=== PATIENT | female | born 1985 | race Caucasian/White ===

== ENCOUNTER 2016-09-07 00:47 | Emergency (ER) | payer MEDICAID ==
[2016-09-07 00:57] VITALS: BP 122/82
--- NOTE | 2016-09-07 01:13 | EDM.PDOC ---
ED HPI GENERAL MEDICAL PROBLEM - General Chief Complaint: Drug or Alcohol Abuse Stated Complaint: MEDICAL CLEARANCE Time Seen by Provider: 09/07/16 01:04 Source of Information: Reports: Patient, Police - History of Present Illness INITIAL COMMENTS - FREE TEXT/NARRATIVE: 31-year-old female has been brought here by [employer] police for medical clearance. She is been stopped and I believe charged with DWI. Officer states that they recorder and EtOH level of 0.21. He states their policy demands medical clearance before being brought to [facility] for detox. She was stopped about 2 hours ago. At this time she has no complaints of chest pain, abdominal pain nausea vomiting or difficulty breathing. Reports no injury. She states she is healthy on no current medications and no known medical problems. 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 Below) Other OB/BYN History: - Past Surgical History Female Surgical History: Reports: Section Social & Family History - Family History Family Medical History: Noncontributory - Tobacco Use Smoking Status *Q: Never Smoker Second Hand Smoke Exposure: No - Caffeine Use Caffeine Use: Reports: None - Recreational Drug Use Recreational Drug Use: No ED ROS GENERAL - Review of Systems Review Of Systems: See Below Constitutional: Reports: No Symptoms HEENT: Reports: No Symptoms Respiratory: Denies: Shortness of Breath Cardiovascular: Denies: Chest Pain GI/Abdominal: Denies: Abdominal Pain, Nausea, Vomiting Musculoskeletal: Reports: No Symptoms Skin: Reports: No Symptoms Neurological: Reports: No Symptoms - Physical Exam Exam: See Below General Appearance: Alert, No Apparent Distress Eye Exam: Bilateral Eye: PERRL Throat/Mouth: Normal Inspection, Normal Oropharynx Head Exam: Atraumatic Neck: Supple Respiratory/Chest: No Respiratory Distress, Lungs Clear, Normal Breath Sounds Cardiovascular: Regular Rate, Rhythm Neuro Exam (Abbreviated): Alert, No Motor/Sensory Deficits Skin Exam: Warm, Dry, Normal Color Course - Vital Signs Last Recorded V/S: Last Vital Signs Temp 96.7 F 09/07/16 00:54 Pulse 122 H 09/07/16 00:54 Resp 16 09/07/16 00:54 BP 122/82 09/07/16 00:54 Pulse Ox 100 09/07/16 00:54 Departure - Departure Time of Disposition: 01:12 Disposition: Home, Self-Care 01 Condition: Fair Clinical Impression: Alcohol intoxication Qualifiers: Complication of substance-induced condition: uncomplicated Qualified Code(s): F10.920 - Alcohol use, unspecified with intoxication, uncomplicated - Discharge Information Instructions: Alcohol Intoxication, [id number] Referrals: PCP,None [Primary Care Provider] - Additional Instructions: A medical screening exam has been done. Patient does have alcohol intoxication but no other acute medical emergency condition is apparent at this time.
== END 2016-09-07 01:19 | disposition home or self-care (01) ==
LOC: JD.ED 00:47
DX: F10.920 Alcohol use, unspecified with intoxication, uncomplicated (principal); Z98.890 Other specified postprocedural states; Z79.899 Other long term (current) drug therapy
CPT/HCPCS: 99282; 99284

== ENCOUNTER 2017-05-26 19:47 | Emergency (ER) | payer MEDICAID ==
[2017-05-26] MEDS ORDERED: LORazepam 2 MG/ML SDV IVPUSH ONE (19:48)
[2017-05-26] MEDS ORDERED: Sodium Chloride 0.9% 1,000 ML IV ONE (19:48)
[2017-05-26 19:53] VITALS: BP 122/84
--- NOTE | 2017-05-26 20:03 | EDM.PDOC ---
ED HPI GENERAL MEDICAL PROBLEM - General Chief Complaint: Neurological Problem Stated Complaint: [facility]. Time Seen by Provider: 05/26/17 19:47 Source of Information: Reports: Patient, EMS History Limitations: Reports: No Limitations - History of Present Illness INITIAL COMMENTS - FREE TEXT/NARRATIVE: 31-year-old female arrives via [facility] for evaluation and treatment following a seizure. Reportedly she had a grand mal type seizure tonic -clonic activity for about 2-3 minutes prior to arrival the ER. No history of any seizures. She did bite her tongue. She is rather postictal and confused upon arrival. Blood sugar by EMS was 126. Patient denies any current pain. She is alert and orientated to person and place but not time. No history of any bowel or bladder incontinence. Patient denies any drug use. Denies any alcohol abuse. Denies any chance of . She denies any recent illness. Denies any recent cough or cold symptoms. No fevers. 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 (See Below) Other OB/BYN History: - Past Surgical History Female Surgical History: Reports: Section Social & Family History - Family History Family Medical History: Noncontributory - Tobacco Use Smoking Status *Q: Never Smoker Second Hand Smoke Exposure: No - Caffeine Use Caffeine Use: Reports: None - Recreational Drug Use Recreational Drug Use: No ED ROS GENERAL - Review of Systems Review Of Systems: See Below Constitutional: Denies: Fever HEENT: Reports: Other (tongue biting) Respiratory: Denies: Cough GI/Abdominal: Denies: Diarrhea, Nausea, Stool Incontinence, Vomiting : Denies: Incontinence Neurological: Reports: Seizure. Denies: Headache, Numbness, Tingling - Physical Exam Exam: See Below Exam Limited By: No Limitations General Appearance: Alert, WD/WN, Anxious, Mild Distress Eye Exam: Bilateral Eye: Normal Inspection, PERRL Ears: Normal External Exam Nose: Normal Inspection Throat/Mouth: Normal Inspection, Normal Lips, Normal Voice, No Airway Compromise , Evidence of Tongue Biting (left lateral tongue) Head Exam: Atraumatic, Normocephalic Neck: Normal Inspection Respiratory/Chest: No Respiratory Distress, Lungs Clear, Normal Breath Sounds Cardiovascular: Normal Peripheral Pulses, Regular Rate, Rhythm, No Murmur Neuro Exam (Abbreviated): Alert, Oriented (person, place but not time ), Confused, Slow to Respond Psychiatric: Normal Affect, Normal Mood Skin Exam: Warm, Dry, Normal Color EKG INTERPRETATION EKG Date: 05/26/17 Time: 19:45 Rhythm: NSR Rate (Beats/Min): 105 [place]: Normal P-Wave: Present QRS: Normal ST-T: Normal QT: Normal EKG Interpretation Comments: Sinus tachycardia at 105 bpm. No ischemic changes .No LAD. No LVH. NO IVCDs. Reviewed by myself and Dr. Patel. Course - Vital Signs Last Recorded V/S: Last Vital Signs Temp 35.7 C 05/26/17 19:49 Pulse 111 H 05/26/17 19:49 Resp BP 122/84 05/26/17 19:49 Pulse Ox 95 05/26/17 19:49 - Orders/Labs/Meds Labs: Laboratory Tests 05/26/17 05/26/17 05/26/17 Range/Units 20:17 20:25 20:25 WBC 4.82 (3.98-10.04) K/mm3 RBC 3.51 L (3.98-5.22) M/mm3 Hgb 11.8 (11.2-15.7) gm/L Hct 35.5 (34.1-44.9) % MCV 101.1 H (79.4-94.8) fl MCH 33.6 H (25.6-32.2) pg MCHC 33.2 (32.2-35.5) g/dl RDW Std Deviation 42.0 (36.4-46.3) fL Plt Count 222 (182-369) K/mm3 MPV 10.4 (9.4-12.3) fl Neutrophils % (Manual) 68 H (40-60) % Band Neutrophils % 0 (0-10) % Lymphocytes % (Manual) 15 L (20-40) % Atypical Lymphs % 0 % Monocytes % (Manual) 8 (2-10) % Eosinophils % (Manual) 9 H (0.7-5.8) % Basophils % (Manual) 0 L (0.1-1.2) Platelet Estimate Adequate Plt Morphology Comment Normal RBC Morph Comment Normal Sodium 139 (136-145) mEq/L Potassium 3.9 (3.5-5.1) mEq/L Chloride 102 (98-107) mEq/L Carbon Dioxide 30 (21-32) mEq/L Anion Gap 10.9 (5-15) BUN 26 H (7-18) mg/dL Creatinine 1.0 (0.55-1.02) mg/dL Est Cr Clr Drug Dosing 71.03 mL/min Estimated GFR (MDRD) > 60 (>60) mL/min BUN/Creatinine Ratio 26.0 H (14-18) Glucose 81 (74-106) mg/dL Calcium 8.4 L (8.5-10.1) mg/dL Phosphorus 2.2 L (2.6-4.7) mg/dL Magnesium 1.7 L (1.8-2.4) mg/dl Total Bilirubin 0.1 L (0.2-1.0) mg/dL AST 23 (15-37) U/L ALT 23 (14-59) U/L Alkaline Phosphatase 24 L (46-116) U/L Creatine Kinase 200 H (26-192) U/L Total Protein 6.1 L (6.4-8.2) g/dl Albumin 3.5 (3.4-5.0) g/dl Globulin 2.6 gm/dL Albumin/Globulin Ratio 1.4 (1-2) HCG, Qual (NEGATIVE) Urine Opiates Screen Negative (NEGATIVE) Ur Buprenorphine Scrn Negative (NEGATIVE) Ur Oxycodone Screen Negative (NEGATIVE) Urine Methadone Screen Negative (NEGATIVE) Ur Propoxyphene Screen Negative (NEGATIVE) Ur Barbiturates Screen Negative (NEGATIVE) Ur Tricyclics Screen Negative (NEGATIVE) Ur Phencyclidine Scrn Negative (NEGATIVE) Ur Amphetamine Screen Negative (NEGATIVE) U Methamphetamines Scrn Presumptive positive H (NEGATIVE) U Benzodiazepines Scrn Negative (NEGATIVE) U Cocaine Metab Screen Negative (NEGATIVE) U Marijuana (THC) Screen Negative (NEGATIVE) Ethyl Alcohol 0.00 (0.00) gm% 05/26/17 Range/Units 20:25 WBC (3.98-10.04) K/mm3 RBC (3.98-5.22) M/mm3 Hgb (11.2-15.7) gm/L Hct (34.1-44.9) % MCV (79.4-94.8) fl MCH (25.6-32.2) pg MCHC (32.2-35.5) g/dl RDW Std Deviation (36.4-46.3) fL Plt Count (182-369) K/mm3 MPV (9.4-12.3) fl Neutrophils % (Manual) (40-60) % Band Neutrophils % (0-10) % Lymphocytes % (Manual) (20-40) % Atypical Lymphs % % Monocytes % (Manual) (2-10) % Eosinophils % (Manual) (0.7-5.8) % Basophils % (Manual) (0.1-1.2) Platelet Estimate Plt Morphology Comment RBC Morph Comment Sodium (136-145) mEq/L Potassium (3.5-5.1) mEq/L Chloride (98-107) mEq/L Carbon Dioxide (21-32) mEq/L Anion Gap (5-15) BUN (7-18) mg/dL Creatinine (0.55-1.02) mg/dL Est Cr Clr Drug Dosing mL/min Estimated GFR (MDRD) (>60) mL/min BUN/Creatinine Ratio (14-18) Glucose (74-106) mg/dL Calcium (8.5-10.1) mg/dL Phosphorus (2.6-4.7) mg/dL Magnesium (1.8-2.4) mg/dl Total Bilirubin (0.2-1.0) mg/dL AST (15-37) U/L ALT (14-59) U/L Alkaline Phosphatase (46-116) U/L Creatine Kinase (26-192) U/L Total Protein (6.4-8.2) g/dl Albumin (3.4-5.0) g/dl Globulin gm/dL Albumin/Globulin Ratio (1-2) HCG, Qual Negative (NEGATIVE) Urine Opiates Screen (NEGATIVE) Ur Buprenorphine Scrn (NEGATIVE) Ur Oxycodone Screen (NEGATIVE) Urine Methadone Screen (NEGATIVE) Ur Propoxyphene Screen (NEGATIVE) Ur Barbiturates Screen (NEGATIVE) Ur Tricyclics Screen (NEGATIVE) Ur Phencyclidine Scrn (NEGATIVE) Ur Amphetamine Screen (NEGATIVE) U Methamphetamines Scrn (NEGATIVE) U Benzodiazepines Scrn (NEGATIVE) U Cocaine Metab Screen (NEGATIVE) U Marijuana (THC) Screen (NEGATIVE) Ethyl Alcohol (0.00) gm% Meds: Medications Discontinued Medications Generic Name Dose Route Start Last Admin Trade Name Freq PRN Reason Stop Dose Admin Sodium Chloride 1,000 mls @ 999 mls/hr 05/26/17 19:48 05/26/17 20:10 Normal Saline IV 05/26/17 20:48 999 mls/hr ONETIME ONE Administration Lorazepam 1 mg 05/26/17 19:48 05/26/17 20:10 Ativan IVPUSH 05/26/17 19:49 1 mg ONETIME ONE Administration - Radiology Interpretation Free Text/Narrative:: CT of the head without contrast impression per [facility]: No evidence for acute transcortical infarct, acute intracranial hemorrhage or mass effect. - Re-Assessments/Exams Free Text/Narrative Re-Assessment/Exam: 05/26/17 22:44 I reviewed the labs, EKG and imaging with the patient. Labs support that she did have a seizure. I asked her about her positive methamphetamine. She states that she does not use any illicit drugs. She feels likely from some over-the- counter supplementation. Plan will be to discharge the patient home. No driving and until 3 months or until cleared by neurology. The patient has been resting in the ER. Her confusion and postictal state have improved. Given this is her first seizure I do not feel we need to start her on any antiepileptic medications at this time. It is also unclear if this is from drugs or alcohol first is an actual seizure disorder. It should be of note the patient has been seen here in the ER within the last year for medical clearance due to intoxication. It is also pertinent that one of the nurses knows this patient personally. The nurse appreciates that she does drink alcohol frequently. I asked the patient several times about drug and alcohol and she adamantly denies this. Cannot confirm or deny at this point if her seizure tonight was from drugs or alcohol versus an actual seizure disorder. I will have her follow-up with neurology. Departure - Departure Time of Disposition: 22:52 Disposition: Home, Self-Care 01 Condition: Fair Clinical Impression: Seizure - Discharge Information Prescriptions: LORazepam [Ativan] 0.5 mg PO Q8H PRN #8 tab PRN Reason: Anxiety Instructions: Seizure, Adult Referrals: Maddy Gonzalez NP [Ordering Only Provider] - PCP,[facility] [Primary Care Provider] - Shaed Dueñas MD [Ordering Only Provider] - Forms: ED Department Discharge Additional Instructions: take the ativan 1 tab PO every 6-8 hours as needed for anxiety and shakiness. Follow-up with you PCP to further discuss your current medications. You may need to cathie off some of your medications as some of these medications can lower the seizure threshold.. Do not drink alcohol or use any ilicit drugs. rest. make sure you are drinking plenty plenty of fluids. Follow-up with neurology. Recommend Dr. Man at [facility] in [place]. Call [phone] to schedule with him. No driving or operating machinery x 3 months or until cleared by neurology. Please return to the ER for symptoms change or worsen.
--- NOTE | 2017-05-27 07:36 | CT ---
Head CT Technique: Multiple axial sections through the brain were obtained. Intravenous contrast was not utilized. Comparison: No prior intracranial imaging. Findings: Ventricles along with basal cisterns and sulci over the convexities are within normal limits for the patient's age. No abnormal parenchymal densities are seen. No evidence of intracranial hemorrhage. No midline shift or mass effect is seen. Bone window settings were reviewed which show the visualized sinuses to appear clear. No acute calvarial abnormality is seen. Impression: 1. Nothing acute is appreciated on noncontrast head CT study. Diagnostic code #1 Agree with preliminary report issued by [facility] ([facility] preliminary report dictated on 05/26/17, 10:41 PM Central Time)
== END 2017-05-26 23:30 | disposition home or self-care (01) ==
LOC: JD.ED 19:47
DX: R56.9 Unspecified convulsions (principal); Z79.899 Other long term (current) drug therapy
CPT/HCPCS: 36415; 70450; 80053; 80306; 82550; 83735; 84100; 84703; 85025; 96361; 96374; 99285; G0480; J2060; J7040

== ENCOUNTER 2017-07-04 03:12 | Emergency (ER) | payer MEDICAID ==
[2017-07-04 03:23] VITALS: BP 110/76
--- NOTE | 2017-07-04 03:34 | EDM.PDOC ---
ED HPI GENERAL MEDICAL PROBLEM - General Chief Complaint: Lower Extremity Injury/Pain Stated Complaint: RIGHT LEG PAIN INJURED PLAYING SOFTBALL Time Seen by Provider: 07/04/17 03:26 - History of Present Illness INITIAL COMMENTS - FREE TEXT/NARRATIVE: 31-year-old female since emergency room with right knee pain. Patient injuring around 7:30 this evening roughly 8 hours ago. She slid into a base playing softball felt some pop is pretty significant right knee pain since that time. She has significant pain especially on the lateral aspect of her knee. The patient has consumed some alcohol this evening. She denies any other injury associated with this incident this evening. Patient denies any possibility of being at this time. Right Leg Pain Score (Numeric/FACES): 10 - Related Data Allergies Allergy/AdvReac Type Severity Reaction Status Date / Time No Known Allergies Allergy Verified 07/04/17 03:20 Home Meds: Home Meds Multivitamin with Minerals [Multiple Vitamin] 1 tab PO DAILY 09/07/16 [History] Albuterol [Proventil HFA] 1 - 2 puff INH QID PRN 05/26/17 [History] Fluticasone/Salmeterol [Advair 100-50] 1 puff INH DAILY 05/26/17 [History] Ondansetron [Zofran ODT] 4 mg SL Q6H PRN 07/04/17 [History] Topiramate [Topamax] 50 mg PO BID 07/04/17 [History] Vortioxetine Hydrobromide [Trintellix] 5 mg PO DAILY 07/04/17 [History] Past Medical History Respiratory History: Reports: Asthma 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 (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) Other OB/BYN History: Neurological History: Reports: Migraines, Seizure Psychiatric History: Reports: Depression - Past Surgical History Female Surgical History: Reports: Section Social & Family History - Family History Family Medical History: Noncontributory - Tobacco Use Smoking Status *Q: Never Smoker - Caffeine Use Caffeine Use: Reports: None - Recreational Drug Use Recreational Drug Use: No Review of Systems - Review of Systems Review Of Systems: See Below Constitutional: Reports: No Symptoms Respiratory: Reports: No Symptoms Cardiovascular: Reports: No Symptoms GI/Abdominal: Reports: No Symptoms ED EXAM, GENERAL - Physical Exam Exam: See Below Exam Limited By: No Limitations General Appearance: Alert, Mild Distress (From right knee pain) Respiratory/Chest: No Respiratory Distress, Lungs Clear, Normal Breath Sounds Cardiovascular: Regular Rate, Rhythm, No Edema, No Murmur Extremities: Other (Examination the right knee is severely difficult because discomfort patient will not allow reasonable examination at this time she has marked discomfort over the lateral aspect of the knee both fully extended and with some degree of flexion I am unable to test the integrity of the collateral ligaments the ACL or any meniscal testing.) Course - Vital Signs Last Recorded V/S: Last Vital Signs Temp 36.2 C 07/04/17 03:20 Pulse 93 07/04/17 03:20 Resp 16 07/04/17 03:20 BP 110/76 07/04/17 03:20 Pulse Ox 100 07/04/17 03:20 - Re-Assessments/Exams Free Text/Narrative Re-Assessment/Exam: 07/04/17 04:22 X-ray examination shows no acute fracture dislocation initially I was concerned about the AP and oblique density coming from the midportion tibia extending laterally and could not visualize this and the other views but did have virtual radiology look at it and they deemed it was negative. Patient will be placed in a knee immobilizer and crutches Departure - Departure Time of Disposition: 04:24 Disposition: Home, Self-Care 01 Clinical Impression: Right knee injury - Discharge Information Referrals: Maddy Gonzalez NP [Primary Care Provider] - Additional Instructions: Return to the emergency room with any questions problems or worsening symptoms. Follow-up with orthopedics next week. Saturday or Saturday. Dr. Munoz [phone] Keep the knee elevated as much as tolerated. Keep the knee immobilizer in place until seen in the clinic. You have been given hydrocodone from the machine out in the waiting room. Take one or 2 every 6 hours as needed for pain. Allow 12 hours after using this medication before driving or returning to work. Do not drive until you can safely operate a vehicle without the knee immobilizer or crutches.
[2017-07-04] MEDS ORDERED: Acetaminophen/HYDROcodone 325-5 MG Tab PO ONE (04:12)
--- NOTE | 2017-07-04 08:10 | CR ---
Right knee: Four views of the right knee were obtained. Comparison: No prior knee exam. Possible minimal joint effusion. Medial and lateral joint spaces are maintained in height. No fracture or other bony abnormality is seen. Impression: 1. Possible small joint effusion. 2. Right knee study is otherwise unremarkable. Diagnostic code #2 I agree with preliminary report from [facility], finalized at 07/04/17, 5:20 AM Central Time
== END 2017-07-04 05:03 | disposition home or self-care (01) ==
LOC: JD.ED 03:12
DX: S89.91XA Unspecified injury of right lower leg, initial encounter (principal); Z79.899 Other long term (current) drug therapy; X50.9XXA Other and unspecified overexertion or strenuous movements or postures, initial encounter; Y93.64 Activity, baseball
CPT/HCPCS: 73562; 99283; A9270

== ENCOUNTER 2022-11-25 05:45 | Emergency (ER) | payer MEDICAID ==
[2022-11-25] MEDS ORDERED: LORazepam 2 MG/ML SDV IVPUSH ONE (06:13)
[2022-11-25 08:31] VITALS: BP 140/77; PULSE 95
== END 2022-11-25 08:30 | disposition home or self-care (01) ==
LOC: JD.ED 05:45
DX: F41.1 Generalized anxiety disorder (principal); J45.909 Unspecified asthma, uncomplicated; Z79.899 Other long term (current) drug therapy
CPT/HCPCS: 93005; 96374; 99283; J2060; 93010

== ENCOUNTER 2023-09-17 10:12 | Emergency (ER) | payer MEDICAID ==
[2023-09-17] MEDS: Naproxen 500 MG Tab PO ONE (12:09)
[2023-09-17 13:15] VITALS: BP 97/71; PULSE 82
== END 2023-09-17 12:10 | disposition home or self-care (01) ==
LOC: JD.ED 10:12
DX: M25.561 Pain in right knee (principal); M25.551 Pain in right hip; J45.909 Unspecified asthma, uncomplicated; Z79.899 Other long term (current) drug therapy
CPT/HCPCS: 72170; 73552; 73562; 99283; A9270

== ENCOUNTER 2024-03-19 07:21 | Emergency (ER) | payer MEDICAID ==
[2024-03-19] MEDS: Morphine 4 MG/ML Syringe IVPUSH ONE (08:11)
[2024-03-19] MEDS: Sodium Chloride 0.9% 10 ML Syringe FLUSH PRN (08:15)
[2024-03-19 08:25] LABS: BASOPHILS PERCENT AUTO 0.8 % (0.0-1.0); EOSINOPHILS ABSOLUTE AUTO 0.1 K/mm3 (0.0-0.4); EOSINOPHILS PERCENT AUTO 1.8 % (0.0-6.0); HEMOGLOBIN 13.5 gm/dl (12.0-16.0); LYMPHOCYTES ABSOLUTE AUTO 1.1 K/mm3 (1.0-4.8); LYMPHOCYTES PERCENT AUTO 29.9 % (24.0-44.0); MEAN CORPUSCULAR HEMOGLOBIN 32.8 pg (28.0-32.0); MEAN CORPUSCULAR HGB CONC 33.8 g/dl (32.0-36.0); MEAN CORPUSCULAR VOLUME 97.3 fl (83.0-99.0); MEAN PLATELET VOLUME 11.4 fl (9.4-12.3); MONOCYTES ABSOLUTE AUTO 0.4 K/mm3 (0.0-0.8); NEUTROPHILS ABSOLUTE AUTO 2.2 K/mm3 (1.8-7.7); NEUTROPHILS PERCENT AUTO 57.5 % (41.0-71.0); PLATELET COUNT,PLT 186 K/mm3 (150-400); RED BLOOD CELL COUNT 4.11 M/mm3 (4.10-5.30); WHITE BLOOD CELL COUNT,WBC 3.81 K/mm3 (3.9-11.3)
[2024-03-19 08:49] LABS: A/G RATIO 1.2 (1-2); ALBUMIN 3.8 g/dl (3.4-5.0); ANION GAP 10.7 (5-15); BILIRUBIN TOTAL 0.4 mg/dL (0.2-1.0); CALCIUM 8.8 mg/dL (8.5-10.1); EST CRCL DRUG DOSING (CG) 66.51 mL/min; POTASSIUM,K 3.7 mEq/L (3.5-5.1); PROTEIN TOTAL,TP 6.9 g/dl (6.4-8.2)
[2024-03-19 09:07] LABS: APPEARANCE,URINE CLEAR (Clear); BILIRUBIN,URINE NEGATIVE (Negative); COLOR,URINE LIGHT YELLOW (Yellow); GLUCOSE,URINE NEGATIVE (Negative); KETONES,URINE NEGATIVE (Negative); LEUKOCYTE ESTERASE,URINE NEGATIVE (Negative); NITRITE,URINE NEGATIVE (Negative); OCCULT BLOOD,URINE NEGATIVE (Negative); PROTEIN,URINE NEGATIVE (Negative); UROBILINOGEN,URINE 0.2 (0.2-1.0)
[2024-03-19] MEDS: Ketorolac 15 MG/ML SDV IVPUSH ONE (09:34)
[2024-03-19] MEDS: HYDROmorphone 1 MG/ML Syringe IVPUSH ONE (11:08)
[2024-03-19 12:33] VITALS: BP 115/77; PULSE 72
== END 2024-03-19 12:28 | disposition home or self-care (01) ==
LOC: JD.ED 07:21
DX: M54.50 Low back pain, unspecified (principal); I10 Essential (primary) hypertension; J45.909 Unspecified asthma, uncomplicated; F17.210 Nicotine dependence, cigarettes, uncomplicated; Z79.899 Other long term (current) drug therapy
CPT/HCPCS: 36415; 72128; 72128-26; 72131; 72131-26; 80053; 81003; 84703; 85025; 96374; 96375; 99284-25; J1171; J1885; J2270